=== PATIENT | female | born 1985 | race Caucasian/White ===

== ENCOUNTER 2021-05-29 16:35 | Emergency (ER) | payer BC, OTHER ==
[2021-05-29] MEDS ORDERED: ACETAMINOPHEN 325 MG TABLET (FP) PO ONE (16:50)
[2021-05-29] MEDS ORDERED: ACETAMINOPHEN 325 MG TABLET (FP) ONE (16:59)
[2021-05-29 17:03] VITALS: BP 113/65; PULSE 78; TEMP 97.5; BMI 22.7
== END 2021-05-29 17:58 | disposition home or self-care (01) ==
LOC: FER 16:35
DX: S80.211A Abrasion, right knee, initial encounter (principal); M25.531 Pain in right wrist; W19.XXXA Unspecified fall, initial encounter
CPT/HCPCS: 73110-TC-RT-FY; 73130-TC-RT-FY; 73560-TC-RT-FY; 99284-25